=== PATIENT | female | born 1975 | race Caucasian/White ===

== ENCOUNTER 2017-05-21 11:40 | Day surgery (SDC) | END 2017-05-21 18:20 | disposition home or self-care (01) ==

== ENCOUNTER 2018-12-16 16:35 | Emergency (ER) | payer MEDICAID, OTHER ==
[~2018-12-16] VITALS: Ht 149.9 cm; Wt 66.9 kg
[~2018-12-16 16:35] MED LIST: CYCL10TA7 PO; NAPR-985 PO
[2018-12-16 17:23] VITALS: Ht 149.9 cm; Wt 66.9 kg
[2018-12-16] MEDS ORDERED: IBUPROFEN 600 MG TAB PO ONE (19:30)
[2018-12-16 20:02] VITALS: BP 130/63; PULSE 58; RESP 18
== END 2018-12-16 20:02 | disposition home or self-care (01) ==
LOC: FTE 16:35
DX: M54.6 Pain in thoracic spine (principal)
CPT/HCPCS: 81003; 81025; Z7502; Z7610; 99283